=== PATIENT | male | born 1990 | race Caucasian/White ===

== ENCOUNTER 2017-12-04 15:21 | Emergency (ER) | payer OTHER ==
[~2017-12-04] VITALS: Ht 182.9 cm; Wt 54.4 kg
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
[2017-12-04] MEDS ORDERED: ACETAMINOPHEN ES 500 MG TABLET ONE (16:30)
[2017-12-04] MEDS ORDERED: ACETAMINOPHEN ES 500 MG TABLET PO ONE (16:30)
--- NOTE | 2017-12-04 16:45 | NUR ---
Patient is resting comfortably in bed with eyes closed. Easily aroused. VSS
--- NOTE | 2017-12-04 17:15 | NUR ---
Patient discharged to home in stable condition. Written and verbal after care instructions given. Patient verbalizes understanding of instruction.
[2017-12-04 17:16] VITALS: BP 116/67
== END 2017-12-04 17:17 | disposition home or self-care (01) ==
LOC: ER 15:26
DX: S05.12XA Contusion of eyeball and orbital tissues, left eye, initial encounter (principal); F17.200 Nicotine dependence, unspecified, uncomplicated; Y04.0XXA Assault by unarmed brawl or fight, initial encounter; Y93.89 Activity, other specified; Y92.89 Other specified places as the place of occurrence of the external cause; Y99.8 Other external cause status
CPT/HCPCS: 70450; 99284; A4606; Z7610